=== PATIENT | female | born 1995 | race African-American/Black ===

== ENCOUNTER 2018-10-23 22:55 | Inpatient (IN) | payer OTHER, SELFPAY ==
[~2018-10-23 22:55] MED LIST: ISOVUE-370 76%-LOCM 1 ML ONE
[2018-10-23] MEDS ORDERED: Adacel (T-DAP) 0.5 ML SYRINGE ONE (23:06)
[2018-10-23 23:09] LABS: #Eosinphils 0.1 thou/uL (0.0-0.7); #Lymphocytes 1.6 thou/uL (1.20-3.40); #Monocytes 0.5 thou/uL (0.11-0.59); #Neutrophils 12.8 thou/uL (1.40-6.50); %Basophils 0.2 % (0.0-1.0); %Eosinophils 0.6 % (0.0-10.0); %Lymphocytes 10.5 % (21.0-51.0); %Monocytes 3.4 % (0.0-10.0); %Neutrophils 85.4 % (42.0-75.0); Hemoglobin 12.2 g/dL (12.0-16.0); Mean Corpuscular HGB CONC 33.5 g/dL (32.0-36.0); Mean Corpuscular Hemoglobin 30.8 pg (27.0-31.0); Mean Platelet Volume 9.1 fL (7.4-10.4); Platelet Count 183 thou/uL (130-400); RBC Distribution Width 10.8 % (11.5-14.5); Red Blood Cell (RBC) Count 3.97 mill/uL (4.20-5.40)
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
[2018-10-23 23:15] LABS: BHCG - Serum Negative (NEGATIVE); INR-International Normal Ratio 1.3; PTT 40.9 SEC (22.9-36.1); Pregs Control Background? CLEAR/WHITE (CLR/WHITE); Pregs Control Bar Appear? YES (CONTROL BAR); Prothrombin Time 16.1 SEC (12.0-14.7)
[2018-10-23 23:22] LABS: ALT (SGPT) 17 U/L (8-55); AST (SGOT) 34 U/L (5-34); Albumin 3.4 g/dL (3.5-5.0); Alkaline Phosphatase 41 U/L (40-150); Anion Gap 13 mmol/L (10-20); BUN (Urea Nitrogen) 13 mg/dL (7.0-18.7); Bilirubin, Total 0.3 mg/dL (0.2-1.2); Calc. Creatinine Clearance 0 mL/min (70-130); Calcium 8.1 mg/dL (7.8-10.44); Carbon Dioxide 19 mmol/L (22-29); Chloride 111 mmol/L (98-107); Estimated GFR-MDRD 74; Globulin 2.8 g/dL (2.4-3.5); Glucose 145 mg/dL (70-105); Potassium 3.6 mmol/L (3.5-5.1); Protein, Total 6.2 g/dL (6.0-8.3); Sodium 139 mmol/L (136-145)
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
[2018-10-23 23:46] LABS: Bilirubin Small (Negative); Blood, Urine Large (Negative); Clarity TURBID (Clear); Glucose, Urine (Dipstick) Negative (Negative); Leukocyte Small (Negative); Nitrite Negative (Negative); Protein, Urine (Dipstick) 300 mg/dL (Neg-Trace); Specific Gravity, Urine 1.019 (1.002-1.036)
[2018-10-23 23:50] LABS: Squamous Epithelial 21-50 HPF (0-3)
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
[2018-10-23 23:54] LABS: Pathc Cast-AUWi Flag 31.86 (0-2.49); Yeast-AUWi Flag 51.2 (0-25.0)
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
[2018-10-24 00:05] LABS: Actual Bicarbonate (HCO3a) 17.5 mEq/L (22-28); Analyzer IN Cardio ER; Base Excess (BEa) -5.8 mEq/L (-2.0 to +3.0); CO2 Tension 28.9 mmHg (35.0-45.0); Calcium, Ionized 0.95 mmol/L (1.12-1.30); Carboxyhemoglobin (COHb) 0.4 gm% (0.0-3.0); Hemoglobin (Hb) 14.5 g/dL (12.0-16.0); O2 Tension (PaO2) 143.5 mmHg (80.0-100.0); Potassium - ABG Lab 3.79 mmol/L (3.70-5.30)
[2018-10-24 00:06] LABS: Bacteria/HPF 1+ HPF (None Seen); Hyaline Casts/LPF NONE SEEN LPF (0-3 Hyaline); Other Casts/LPF None Seen LPF (0-3 Hyaline); Yeast-All Forms None Seen HPF (None Seen)
[2018-10-24 00:07] LABS: Renal Epithelial None Seen HPF (0-3); Transitional Epithelial 0-3 HPF (0-3)
[2018-10-24 00:08] LABS: Crystals/HPF 2+ AMORPH URATES HPF (Negative)
[2018-10-24] MEDS ORDERED: Sodium Chloride 0.9% 30 ML ONE (00:11)
[2018-10-24] MEDS ORDERED: Thrombin 5000 UNITS/5 ML VIAL ONE ×3 (00:11→01:22)
[2018-10-24 00:13] LABS: ALV-art Gradient 176.875 (0-20); Puncture Site LBA
[2018-10-24] MEDS ORDERED: Mannitol 12.5 GM/50 ML ONE (00:13)
[2018-10-24] MEDS ORDERED: Phenylephrine HCL 10 MG/ML VIAL ONE (00:15)
[2018-10-24] MEDS ORDERED: Norepinephrine 8 MG/0.9% NS 0 ML ONE (00:15)
[2018-10-24] MEDS ORDERED: Sodium Bicarbonate 2.5 MEQ/5 ML VIAL ONE (00:16)
[2018-10-24] MEDS ORDERED: Calcium Chloride 1 GM/10 ML Abboject SYRINGE ONE (00:16)
[2018-10-24] MEDS ORDERED: hydrALAZINE 20 MG/ML VIAL SLOW IVP PRN ×2 (00:27→02:03)
[2018-10-24] MEDS ORDERED: Dextrose 50% Abboject 50 ML SYRINGE SLOW IVP PRN ×3 (00:27→11:23)
[2018-10-24] MEDS ORDERED: Dextrose 5% in Water 1,000 ML IV PRN ×2 (00:27→02:03)
[2018-10-24] MEDS ORDERED: Sodium Chloride 0.9% 1,000 ML IV SCH (00:30)
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
[2018-10-24 00:58] LABS: Hemoglobin 11.8 g/dL (12.0-16.0)
[2018-10-24 01:16] LABS: Magnesium 1.5 mg/dL (1.6-2.6)
[2018-10-24 01:20] LABS: Phosphorus 1.8 mg/dL (2.3-4.7)
[2018-10-24 01:23] LABS: Base Excess (BEa) -7.7 mEq/L (-2.0 to +3.0); CO2 Tension 27.5 mmHg (35.0-45.0); Calcium, Ionized 0.92 mmol/L (1.12-1.30); Carboxyhemoglobin (COHb) 0.3 gm% (0.0-3.0); Hemoglobin (Hb) 11.2 g/dL (12.0-16.0); O2 Tension (PaO2) 305.7 mmHg (80.0-100.0); Potassium - ABG Lab 3.04 mmol/L (3.70-5.30); pH, Arterial 7.38 (7.35-7.45)
[2018-10-24 01:26] LABS: Puncture Site ALINE
[2018-10-24 01:39] LABS: Acetaminophen Less than 6.0 mcg/mL (10.0-30.0); Alcohol Less than 10 mg/dL (Less than 10); Salicylate Less than 8.0 mg/dL (15.0-30.0)
[2018-10-24] MEDS ORDERED: Potassium Phosphate 30 MMOL in Sodium Chloride 0.9% 500 ML IVPB SCH (02:15)
[2018-10-24] MEDS ORDERED: PHENYLEPHRINE-NS 100 MCG/ML 10 ML SYRINGE ONE ×4 (02:23→13:53)
[2018-10-24 02:25] LABS: Amphetamine Not Detected (NotDetected); Barbiturates Screen Not Detected (NotDetected); Benzodiazepine Screen Not Detected (NotDetected); Cocaine Metabolite Screen Not Detected (NotDetected); Medtox Control Line Valid? VALID (VALID); Medtox Reader # READER 4; Methadone Not Detected (NotDetected); Methamphetamine Not Detected (NotDetected); Opiate Screen Not Detected (NotDetected); Oxycodone Screen Not Detected (NotDetected); Phencyclidine (PCP) Not Detected (NotDetected); THC/Cannabinoid Screen Detected (NotDetected); Tricyclic Screen Not Detected (NotDetected)
[2018-10-24] MEDS ORDERED: Magnesium 2 GM/50 ML 2 GM in Premix Bag 1 BAG IVPB SCH (02:30)
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
[2018-10-24] MEDS ORDERED: Vasopressin 40 UNIT, Admixture Fee 1 EACH in Sodium Chloride 0.9% 100 ML IV SCH (03:30)
[2018-10-24] MEDS: Sodium Chloride 0.9% 1,000 ML IV SCH ×3 (03:31→17:33)
[2018-10-24] MEDS: Norepinephrine 8 MG/250 ML BAG IVPB PRN ×2 (03:35→09:05)
[2018-10-24 04:03] LABS: Lactic Acid 2.9 mmol/L (0.5-2.2)
[2018-10-24 04:13] VITALS: BMI 34.1
[2018-10-24 04:17] LABS: ALT (SGPT) 17 U/L (8-55); AST (SGOT) 46 U/L (5-34); Albumin 2.8 g/dL (3.5-5.0); Alkaline Phosphatase 35 U/L (40-150); Anion Gap 10 mmol/L (10-20); BUN (Urea Nitrogen) 12 mg/dL (7.0-18.7); Bilirubin, Total 0.7 mg/dL (0.2-1.2); Calc. Creatinine Clearance 135 mL/min (70-130); Calcium 7.4 mg/dL (7.8-10.44); Carbon Dioxide 19 mmol/L (22-29); Chloride 117 mmol/L (98-107); Estimated GFR-MDRD 89; Globulin 2.1 g/dL (2.4-3.5); Glucose 143 mg/dL (70-105); Potassium 4.2 mmol/L (3.5-5.1); Protein, Total 4.9 g/dL (6.0-8.3); Sodium 142 mmol/L (136-145)
[2018-10-24 04:23] LABS: Band 30 % (5-11); Hemoglobin 10.7 g/dL (12.0-16.0); Lymphocytes 4 % (21-51); MDiff Complete? YES; Mean Corpuscular HGB CONC 33.9 g/dL (32.0-36.0); Mean Corpuscular Hemoglobin 30.5 pg (27.0-31.0); Mean Platelet Volume 7.8 fL (7.4-10.4); Monocytes 3 % (0-10); Neutrophil 63 % (42-75); Platelet Count 243 thou/uL (130-400); RBC Distribution Width 11.9 % (11.5-14.5); Red Blood Cell (RBC) Count 3.51 mill/uL (4.20-5.40)
[2018-10-24] MEDS ORDERED: Phenylephrine HCL 20 MG in Sodium Chloride 0.9% 250 ML 250 ML IVPB SCH (04:45)
[2018-10-24] MEDS: CEFAZOLIN 2 GM in Sodium Chloride 0.9% 100 ML IVPB SCH ×3 (04:48→20:17)
[2018-10-24 07:03] LABS: Hemoglobin 11.3 g/dL (12.0-16.0)
[2018-10-24 07:12] LABS: Actual Bicarbonate (HCO3a) 17.2 mEq/L (22-28); Base Excess (BEa) -7.4 mEq/L (-2.0 to +3.0); CO2 Tension 31.9 mmHg (35.0-45.0); Calcium, Ionized 1.06 mmol/L (1.12-1.30); Carboxyhemoglobin (COHb) 0.6 gm% (0.0-3.0); Hemoglobin (Hb) 11.8 g/dL (12.0-16.0); O2 Tension (PaO2) 127.1 mmHg (80.0-100.0); Potassium - ABG Lab 5.47 mmol/L (3.70-5.30); pH, Arterial 7.35 (7.35-7.45)
[2018-10-24 07:13] LABS: ALV-art Gradient 153.875 (0-20); Puncture Site ALINE
[2018-10-24] MEDS ORDERED: Calcium Chloride 27.2 MEQ in Sodium Chloride 0.9% 250 ML 250 ML IVPB SCH (08:15)
[2018-10-24] MEDS: Famotidine/PF 20 mg/2ml Vial SLOW IVP SCH ×2 (08:44→20:17)
[2018-10-24] MEDS ORDERED: Famotidine/PF 20 mg/2ml Vial SLOW IVP SCH (09:00)
[2018-10-24] MEDS ORDERED: Hydrocortisone Sod Succ/PF 100 mg/2 ml Vial IVP SCH (09:00)
--- NOTE | 2018-10-24 10:47 | RAD ---
PORTABLE AP CHEST: Date: 10/24/18 HISTORY: Intubated. COMPARISON: 10/23/18. FINDINGS: Endotracheal tube and left subclavian central venous catheters remain in place and unchanged in posit ion. Nasogastric tube is also again noted in place, but the most proximal side hole overlies the dist al esophagus and a nasogastric tube should be advanced. There is an area of increased density and con solidation seen most likely in the region of the right middle lobe, which may represent a contusion g iven recent history of trauma versus aspiration. No obvious pneumothorax is seen and there is no pleu ral effusion identified. Osseous structures appear intact. IMPRESSION: 1. Lines and tubes in place as described above. The most proximal side hole of the nasogastric tube overlies the distal esophagus, and the nasogastric tube should be advanced. 2. Area of consolidation at the lateral right lung base which may represent aspiration pneumonitis o r contusion. POS: [facility]
[2018-10-24] MEDS ORDERED: Dextrose 50% Abboject 50 ML SYRINGE ONE (11:29)
[2018-10-24] MEDS ORDERED: Insulin Regular 300 UNITS/3 ML VIAL IVP SCH (11:30)
[2018-10-24] MEDS ORDERED: Insulin Regular 300 UNITS/3 ML VIAL ONE (11:30)
[2018-10-24 11:39] LABS: Actual Bicarbonate (HCO3a) 17.4 mEq/L (22-28); Base Excess (BEa) -7.2 mEq/L (-2.0 to +3.0); CO2 Tension 31.3 mmHg (35.0-45.0); Hemoglobin (Hb) 8.1 g/dL (12.0-16.0); Potassium - ABG Lab 4.56 mmol/L (3.70-5.30); pH, Arterial 7.36 (7.35-7.45)
[2018-10-24 11:40] LABS: ALV-art Gradient 341.875 (0-20); Puncture Site ALINE
[2018-10-24] MEDS ORDERED: SODIUM CHLORIDE 0.9% IVPB SCH (11:45)
[2018-10-24] MEDS ORDERED: METHYLPREDNISOLONE SOD SUCC IVPB SCH (11:45)
[2018-10-24 11:57] LABS: Actual Bicarbonate (HCO3a) 18.6 mEq/L (22-28); CO2 Tension 37.8 mmHg (35.0-45.0); Calcium, Ionized 1.31 mmol/L (1.12-1.30); Carboxyhemoglobin (COHb) 0.6 gm% (0.0-3.0); Hemoglobin (Hb) 8.2 g/dL (12.0-16.0); O2 Tension (PaO2) 319.5 mmHg (80.0-100.0); Potassium - ABG Lab 4.63 mmol/L (3.70-5.30); pH, Arterial 7.31 (7.35-7.45)
[2018-10-24] MEDS ORDERED: Levothyroxine 100 MCG SDV IVP SCH (12:00)
[2018-10-24 12:01] LABS: Puncture Site ALINE
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
[2018-10-24 12:17] LABS: Actual Bicarbonate (HCO3a) 20.9 mEq/L (22-28); Base Excess (BEa) -9.5 mEq/L (-2.0 to +3.0); Calcium, Ionized 1.39 mmol/L (1.12-1.30); Carboxyhemoglobin (COHb) 0.6 gm% (0.0-3.0); Hemoglobin (Hb) 9.1 g/dL (12.0-16.0); O2 Tension (PaO2) 243.8 mmHg (80.0-100.0); Potassium - ABG Lab 4.64 mmol/L (3.70-5.30)
[2018-10-24 12:18] LABS: CO2 Tension 75.4 mmHg (35.0-45.0); Puncture Site ALINE; pH, Arterial 7.06 (7.35-7.45)
[2018-10-24 12:21] LABS: Actual Bicarbonate (HCO3a) 21.6 mEq/L (22-28); Base Excess (BEa) -9.6 mEq/L (-2.0 to +3.0); Carboxyhemoglobin (COHb) 0.7 gm% (0.0-3.0); O2 Tension (PaO2) 264.2 mmHg (80.0-100.0); Potassium - ABG Lab 4.71 mmol/L (3.70-5.30)
[2018-10-24 12:22] LABS: CO2 Tension 85.8 mmHg (35.0-45.0); Puncture Site ALINE; pH, Arterial 7.02 (7.35-7.45)
[2018-10-24 13:09] LABS: Sodium 141 mmol/L (136-145)
[2018-10-24 13:17] LABS: Hemoglobin 8.1 g/dL (12.0-16.0)
[2018-10-24] MEDS ORDERED: Dexamethasone 20 MG/5 ML VIAL ONE (13:52)
[2018-10-24] MEDS ORDERED: Ondansetron PF 4 MG/2 ML Vial ONE (13:52)
[2018-10-24] MEDS ORDERED: diphenhydrAMINE 50 MG/ML VIAL ONE (13:52)
[2018-10-24] MEDS ORDERED: Rocuronium Bromide 10 MG/ML (10ML VIAL) ONE (13:53)
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
[2018-10-24] MEDS ORDERED: Sodium Chloride 0.9% 500 ML IVPB SCH (16:15)
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
[2018-10-24] MEDS ORDERED: Sodium Chloride 0.9% 500 ML IV SCH ×2 (17:45→22:15)
[2018-10-24 18:37] LABS: Hemoglobin 10.1 g/dL (12.0-16.0)
[2018-10-24] MEDS ORDERED: Vasopressin 20 UNIT, Admixture Fee 1 EACH in Sodium Chloride 0.9% 250 ML 250 ML IV SCH (20:00)
[2018-10-24 22:38] LABS: Sodium 142 mmol/L (136-145)
[2018-10-25] MEDS ORDERED: Sodium Chloride 0.9% 500 ML IV SCH (01:15)
[2018-10-25 01:29] LABS: Anion Gap 17 mmol/L (10-20); BUN (Urea Nitrogen) 6 mg/dL (7.0-18.7); Calc. Creatinine Clearance 145 mL/min (70-130); Calcium 8.7 mg/dL (7.8-10.44); Carbon Dioxide 19 mmol/L (22-29); Chloride 111 mmol/L (98-107); Estimated GFR-MDRD Greater than 90; Glucose 222 mg/dL (70-105); Phosphorus 3.2 mg/dL (2.3-4.7); Potassium 4.6 mmol/L (3.5-5.1); Sodium 142 mmol/L (136-145)
[2018-10-25] MEDS: Sodium Chloride 0.9% 1,000 ML IV SCH (02:49)
[2018-10-25] MEDS: CEFAZOLIN 2 GM in Sodium Chloride 0.9% 100 ML IVPB SCH (04:53)
[2018-10-25 06:04] LABS: ALT (SGPT) 16 U/L (8-55); AST (SGOT) 53 U/L (5-34); Albumin 3.8 g/dL (3.5-5.0); Alkaline Phosphatase 45 U/L (40-150); Anion Gap 14 mmol/L (10-20); BUN (Urea Nitrogen) 5 mg/dL (7.0-18.7); Bilirubin, Total 0.3 mg/dL (0.2-1.2); Calc. Creatinine Clearance 145 mL/min (70-130); Calcium 8.7 mg/dL (7.8-10.44); Carbon Dioxide 20 mmol/L (22-29); Chloride 112 mmol/L (98-107); Estimated GFR-MDRD Greater than 90; Globulin 2.5 g/dL (2.4-3.5); Glucose 208 mg/dL (70-105); Magnesium 1.6 mg/dL (1.6-2.6); Phosphorus 2.5 mg/dL (2.3-4.7); Potassium 4.5 mmol/L (3.5-5.1); Protein, Total 6.3 g/dL (6.0-8.3); Sodium 141 mmol/L (136-145)
[2018-10-25 06:08] LABS: Band 28 % (5-11); Hemoglobin 11.1 g/dL (12.0-16.0); Lymphocytes 4 % (21-51); MDiff Complete? YES; Mean Corpuscular HGB CONC 32.8 g/dL (32.0-36.0); Mean Corpuscular Hemoglobin 29.7 pg (27.0-31.0); Mean Corpuscular Volume 90.8 fL (78.0-98.0); Mean Platelet Volume 9.9 fL (7.4-10.4); Monocytes 6 % (0-10); Neutrophil 62 % (42-75); Platelet Count 120 thou/uL (130-400); RBC Distribution Width 12.3 % (11.5-14.5); Red Blood Cell (RBC) Count 3.73 mill/uL (4.20-5.40); White Blood Cell (WBC) Count 28.1 thou/uL (4.8-10.8)
[2018-10-25] MEDS ORDERED: POTASSIUM PHOSPHATE IVPB SCH (06:30)
[2018-10-25] MEDS ORDERED: MAGNESIUM SULFATE IVPB SCH (06:30)
[2018-10-25] MEDS ORDERED: [UNRECOGNIZED DRUG - OTHER] IVPB SCH (06:30)
[2018-10-25 07:31] VITALS: BP 112/67
[2018-10-25 07:41] LABS: Actual Bicarbonate (HCO3a) 22.8 mEq/L (22-28); Base Excess (BEa) -3.4 mEq/L (-2.0 to +3.0); CO2 Tension 45.8 mmHg (35.0-45.0); Carboxyhemoglobin (COHb) 0.3 gm% (0.0-3.0); Hemoglobin (Hb) 11.5 g/dL (12.0-16.0); pH, Arterial 7.32 (7.35-7.45)
[2018-10-25] MEDS: Famotidine/PF 20 mg/2ml Vial SLOW IVP SCH (08:41)
--- NOTE | 2018-10-25 08:59 | RAD ---
SINGLE VIEW CHEST: Date: 10/25/18 COMPARISON: 10/25/18. HISTORY: Intubated patient with respiratory failure. FINDINGS: Single view of the chest shows normal sized cardiomediastinal silhouette. Lines and tubes are unchang ed in position. There is a stable infiltrate in the superior aspect of the right lower lobe. IMPRESSION: Stable exam. POS: [facility]
[2018-10-25] MEDS ORDERED: methylPREDNISolone Sod Succ/PF 125 MG/2 ML VIAL IVP SCH (09:00)
[2018-10-25] MEDS ORDERED: Artificial Tears 18 DROP/0.9 ML EA EYE PRN (09:12)
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
[2018-10-25 12:04] VITALS: TEMP 98.2
[2018-10-25] MEDS ORDERED: CEFAZOLIN 2 GM in Premix Bag 1 BAG IVPB SCH (13:00)
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
== END 2018-10-25 10:28 | disposition expired | DRG 955 ==
LOC: ERS 22:55 → CCU 23:42 → ERS 10-24 00:18
PROVIDERS: ADMIT Surgery; ATTEND Surgery
PROC: 0T9B70Z Drainage of Bladder with Drainage Device, Via Natural or Artificial Opening (ICD-10-PCS; 2018-10-23)
PROC: 02HV33Z Insertion of Infusion Device into Superior Vena Cava, Percutaneous Approach (ICD-10-PCS; 2018-10-23)
PROC: 00C40ZZ Extirpation of Matter from Intracranial Subdural Space, Open Approach (ICD-10-PCS; principal; 2018-10-24)
PROC: 009600Z Drainage of Cerebral Ventricle with Drainage Device, Open Approach (ICD-10-PCS; 2018-10-24)
PROC: 0BH17EZ Insertion of Endotracheal Airway into Trachea, Via Natural or Artificial Opening (ICD-10-PCS; 2018-10-24)
PROC: 5A1935Z Respiratory Ventilation, Less than 24 Consecutive Hours (ICD-10-PCS; 2018-10-24)
PROC: 3E033XZ Introduction of Vasopressor into Peripheral Vein, Percutaneous Approach (ICD-10-PCS; 2018-10-24)
PROC: 30233K1 Transfusion of Nonautologous Frozen Plasma into Peripheral Vein, Percutaneous Approach (ICD-10-PCS; 2018-10-24)
PROC: 30233N1 Transfusion of Nonautologous Red Blood Cells into Peripheral Vein, Percutaneous Approach (ICD-10-PCS; 2018-10-24)
DX: S27.329A Contusion of lung, unspecified, initial encounter; G93.6 Cerebral edema; G93.5 Compression of brain; J96.00 Acute respiratory failure, unspecified whether with hypoxia or hypercapnia; D62 Acute posthemorrhagic anemia; E23.2 Diabetes insipidus; Z51.5 Encounter for palliative care; R40.2312 Coma scale, best motor response, none, at arrival to emergency department; R40.2112 Coma scale, eyes open, never, at arrival to emergency department; R40.2212 Coma scale, best verbal response, none, at arrival to emergency department; R56.9 Unspecified convulsions; V49.49XA Driver injured in collision with other motor vehicles in traffic accident, initial encounter
CPT/HCPCS: 31500; 36415; 36416; 36430; 36556; 51702; 70450; 71045; 71260; 72125; 72170; 74177; 78610; 80053; 80306; 80307; 81001; 82150; 82533; 82805; 83605; 83735; 83930; 84100; 84703; 85014; 85018; 85025; 85610; 85730; 86850; 86900; 86901; 90471; 90715; 94002; 94003; 94760; 99292; A9521; G0390; J0690; J1100; J1200; J1720; J1815; J1953; J2150; J2370; J2405; J2597; J2930; J3475; J3490; J7050; P9016; P9045; P9048; Q9966; S0028

== ENCOUNTER 2018-10-25 10:28 | Inpatient (IN) | payer OTHER, SELFPAY ==
[2018-10-25 15:44] LABS: INR-International Normal Ratio 1.2; PTT 29.4 SEC (22.9-36.1)
[2018-10-25 15:54] LABS: Band 30 % (5-11); Hemoglobin 10.6 g/dL (12.0-16.0); Lymphocytes 2 % (21-51); MDiff Complete? YES; Mean Corpuscular HGB CONC 33.2 g/dL (32.0-36.0); Mean Corpuscular Hemoglobin 29.9 pg (27.0-31.0); Mean Corpuscular Volume 90.3 fL (78.0-98.0); Mean Platelet Volume 10.5 fL (7.4-10.4); Monocytes 6 % (0-10); Neutrophil 62 % (42-75); Platelet Count 104 thou/uL (130-400); Platelet Morphology Comment Appears Decreased; RBC Distribution Width 12.3 % (11.5-14.5); Red Blood Cell (RBC) Count 3.53 mill/uL (4.20-5.40); White Blood Cell (WBC) Count 26.7 thou/uL (4.8-10.8)
[2018-10-25 15:55] VITALS: BMI 32.8
[2018-10-25 15:57] LABS: Lactic Acid 2.6 mmol/L (0.5-2.2)
[2018-10-25 16:01] LABS: ALT (SGPT) 18 U/L (8-55); AST (SGOT) 53 U/L (5-34); Albumin 3.5 g/dL (3.5-5.0); Alkaline Phosphatase 55 U/L (40-150); Anion Gap 13 mmol/L (10-20); BUN (Urea Nitrogen) 6 mg/dL (7.0-18.7); Bilirubin, Total 0.3 mg/dL (0.2-1.2); Calc. Creatinine Clearance 169 mL/min (70-130); Calcium 8.7 mg/dL (7.8-10.44); Carbon Dioxide 22 mmol/L (22-29); Chloride 110 mmol/L (98-107); Estimated GFR-MDRD Greater than 90; Globulin 2.4 g/dL (2.4-3.5); Glucose 182 mg/dL (70-105); Lipase 5 U/L (8-78); Phosphorus 2.3 mg/dL (2.3-4.7); Potassium 4.5 mmol/L (3.5-5.1); Protein, Total 5.9 g/dL (6.0-8.3); Sodium 140 mmol/L (136-145)
[2018-10-25] MEDS ORDERED: Levothyroxine Sodium 400 MCG in Sodium Chloride 0.9% 100 ML IVPB SCH (16:15)
[2018-10-25] MEDS ORDERED: Vasopressin 20 UNIT in Sodium Chloride 0.9% 250 ML 250 ML IV SCH (16:15)
[2018-10-25] MEDS ORDERED: CEFAZOLIN 1 GM in Sodium Chloride 0.9% 100 ML IVPB SCH (16:15)
[2018-10-25] MEDS ORDERED: Albuterol Sulfate 2.5 mg/3 ml Neb NEB PRN (16:15)
--- NOTE | 2018-10-25 16:22 | RAD ---
CHEST ONE VIEW: HISTORY: Respiratory insufficiency. Follow up pneumonia. COMPARISON: 10/25/2018 FINDINGS: NG tube, endotracheal tube, and left central lines are noted. Alveolar parenchymal changes are noted in the right lower lobe with some improved aeration when compared to the earlier study today. No ev idence for pneumothorax. IMPRESSION: 1. Some improved aeration in the right lower lobe with persistent parenchymal change. 2. Stable life support tubes. Continue short-term followup. POS: [facility]
[2018-10-25] MEDS ORDERED: Sodium Chloride 0.9% 1,000 ML IV SCH (16:30)
[2018-10-25] MEDS: Phytonadione 10 MG in Sodium Chloride 0.9% 50 ML IVPB SCH ×2 (17:07→20:28)
[2018-10-25 17:21] LABS: Actual Bicarbonate (HCO3a) 25.2 mEq/L (22-28); Base Excess (BEa) -0.8 mEq/L (-2.0 to +3.0); CO2 Tension 47.2 mmHg (35.0-45.0); Calcium, Ionized 1.21 mmol/L (1.12-1.30); Carboxyhemoglobin (COHb) 0.3 gm% (0.0-3.0); Hemoglobin (Hb) 10.7 g/dL (12.0-16.0); Potassium - ABG Lab 4.46 mmol/L (3.70-5.30); pH, Arterial 7.35 (7.35-7.45)
[2018-10-25 17:23] LABS: Puncture Site ART LINE
[2018-10-25 18:20] VITALS: BP 134/85
[2018-10-25] MEDS ORDERED: Albuterol Sulfate 2.5 mg/3 ml Neb NEB SCH (18:30)
[2018-10-25] MEDS ORDERED: Magnesium 2 GM/50 ML 2 GM in Premix Bag 1 BAG IVPB SCH (19:30)
[2018-10-25] MEDS ORDERED: Sodium Phosphate 15 MMOL in Sodium Chloride 0.9% 250 ML 250 ML IVPB ONE (19:30)
[2018-10-25] MEDS ORDERED: Norepinephrine 8 MG/0.9% NS 250 ML ONE (20:35)
[2018-10-25] MEDS ORDERED: Norepinephrine 8 MG/250 ML BAG IVPB PRN (21:33)
[2018-10-26 00:52] LABS: Bilirubin Negative (Negative); Blood, Urine Small (Negative); Clarity CLEAR (Clear); Glucose, Urine (Dipstick) 100 mg/dL (Negative); Leukocyte Negative (Negative); Nitrite Negative (Negative); Protein, Urine (Dipstick) Trace mg/dL (Neg-Trace); Urobilinogen 0.2 mg/dL (0.2-1.0); pH, Urine 5.5 (5.0-9.0)
[2018-10-26 00:55] LABS: Hyaline Casts/LPF 7-10 HYALINE CAST LPF (0-3 Hyaline); Pathc Cast-AUWi Flag 1.01 (0-2.49); RBC/HPF 0-3 HPF (0-3); Squamous Epithelial 0-3 HPF (0-3)
[2018-10-26 01:04] LABS: Renal Epithelial None Seen HPF (0-3); Transitional Epithelial NONE SEEN HPF (0-3)
[2018-10-26 01:06] LABS: Bacteria/HPF 2+ HPF (None Seen); Crystals/HPF 1+ AMORPH URATES HPF (Negative)
--- NOTE | 2018-10-27 07:53 | EKG ---
Test Reason : Blood Pressure : / mmHG Vent. Rate : 145 BPM Atrial Rate : 145 BPM P-R Int : 116 ms QRS Dur : 066 ms QT Int : 284 ms P-R-T Axes : 070 033 065 degrees QTc Int : 441 ms Sinus tachycardia Nonspecific T wave abnormality Abnormal ECG No previous ECGs available Confirmed by DAVID SAXENA ([id number]) on 10/27/2018 7:52:35 AM Referred By: JANETT Confirmed By:DAVID SAXENA
== END 2018-10-25 23:18 | disposition expired | DRG 951 ==
LOC: SDC 10:28 → EDSTATUS 13:05 → CCU 13:08
PROVIDERS: ADMIT Surgery; ATTEND Surgery
DX: Z52.89 Donor of other specified organs or tissues (principal)
CPT/HCPCS: 71045; 81003; 81015; 82150; 82805; 83605; 83690; 83735; 84100; 85610; 85730; 87086; 87205; 93005; 93010; 93306; 94640; J0690; J3430; J3475; J7050; J7611